=== PATIENT | female | born 1980 | race American Indian/Alaskan Native ===

== ENCOUNTER 2021-03-05 07:21 | Day surgery (SDC) | payer MEDICAID ==
--- NOTE | 2021-02-24 18:11 | History and Physical Report ---
History of Present Illness Date of examination: 02/24/21 Chief complaint: desiring permanent sterilization History of present illness: 40 yo A1 c/b hx heart palpitations (s/p cardiology clearance) hx HSV, hx umbilical hernia, hx L bartholin's gland cyst desiring permanent sterilization. Patient reports completed childbearing and no longer wishes to conceive. Patient also with with hx of L Bartholin's abscess s/p I&D 01/2021, wants marsupilization if cyst returns. 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: abnormal PAP smear (hx abnormal pap, most recently negative), herpes Family/Genetic History: cancer (breast ca) Social history: no significant social history - Obstetrical History : 4 Para: 3 Hx # Term Pregnancies: 3 Spontaneous Abortions: 1 Number of Living Children: 3 Medications and Allergies Allergies Allergy/AdvReac Type Severity Reaction Status Date / Time bupivacaine Allergy Itching Verified 03/03/21 18:45 latex Allergy Rash Verified 03/03/21 18:45 Home Medications Medication Instructions Recorded Confirmed Last Taken Type Ergocalciferol(Vitamin D2)(Nf) 400 unit PO DAILY 03/03/21 03/05/21 03/05/21 06:30 History [Vitamin D (Nf)] Levothyroxine [Synthroid] 50 mcg PO QAM 03/03/21 03/05/21 03/04/21 08:00 History Fexofenadine HCl [Annita Allergy] 60 mg PO QDAY 03/05/21 03/05/21 03/04/21 History Fluticasone [Flonase] 1 spray NS QDAY 03/05/21 03/05/21 03/04/21 History Review of Systems All systems: negative (expect HPI) - Physical Exam Cardiovascular: Regular rate Lungs: Positive: Clear to auscultation Abdomen: Positive: normal appearance, soft Genitourinary (Female): Positive: normal external genitalia Results Result Diagrams: 03/05/21 08:15 All other labs normal. Assessment and Plan - Patient Problems (1) Admission for sterilization Current Visit: No Status: Acute Plan to address problem: To OR for bilateral tubal ligation with Filshie Clips --Consented in the chart --Questions solicited and answered. Understands that is considered a sterilization procedure and wishes to proceed (2) Cyst of left Bartholin's gland Current Visit: No Status: Acute Plan to address problem: Consented for procedure but patient understands that marsuplization will only take place if cyst present on day of surgery
[2021-03-05] MEDS ORDERED: LACTATED RINGERS 1,000 ML IV SCH (08:30)
[2021-03-05 08:35] LABS: Basophils % (Auto) 0.5 % (0.0-1.8); Eosinophils # (Auto) 0.1 K/mm3 (0.0-0.4); Eosinophils % (Auto) 1.7 % (0.0-4.3); Hematocrit 38.1 % (30.3-42.9); Hemoglobin 13.3 gm/dl (10.1-14.3); Lymphocytes # (Auto) 1.8 K/mm3 (1.2-5.4); Lymphocytes % (Auto) 26.5 % (13.4-35.0); Mean Corpuscular HGB Conc 35 % (30-34); Mean Corpuscular Volume 92 fl (79-97); Monocytes # (Auto) 0.5 K/mm3 (0.0-0.8); Monocytes % (Auto) 6.9 % (0.0-7.3); Platelet Count 178 K/mm3 (140-440); Red Blood Count 4.15 M/mm3 (3.65-5.03)
[2021-03-05] MEDS ORDERED: HYDROmorphone 1 MG/1 ML INJ IV PRN (08:37)
[2021-03-05] MEDS ORDERED: ONDANSETRON 4 MG/2 ML INJ IV PRN (08:37)
--- NOTE | 2021-03-05 08:39 | Anesthesia Day of Surgery ---
Anesthesia Day of Surgery - Day of Surgery Patient Examined: Yes Patient H&P Reviewed: Yes Patient is NPO: Yes
--- NOTE | 2021-03-05 08:41 | Anesthesia Consultation ---
Anesthesia Consult and Med Hx Date of service: 03/05/21 - Airway Anesthetic Teeth Evaluation: Good ROM Head & Neck: Adequate Mental/Hyoid Distance: Adequate Mallampati Class: Class I Intubation Access Assessment: Good - Pre-Operative Health Status ASA Pre-Surgery Classification: ASA2 Proposed Anesthetic Plan: General - Pulmonary Hx Asthma: Yes (Exercise-induced) - Cardiovascular System Hx Hypertension: No (Had pre-eclampsia. +Cardiac clearance for palpitations) - Central Nervous System Hx Psychiatric Problems: No - Gastrointestinal Hx Gastroesophageal Reflux Disease: No - Endocrine Hx Thyroid Disease: Yes Hx Hypothyroidism: Yes - Hematic Hx Sickle Cell Disease: No - Other Systems Hx Alcohol Use: Yes (Occas) Hx Cancer: No Hx Obesity: No
[2021-03-05] MEDS ORDERED: fentaNYL 100 MCG/2 ML INJ ONE (08:56)
[2021-03-05] MEDS ORDERED: ROCURONIUM 50 MG/5 ML INJ IV ONE (08:56)
[2021-03-05] MEDS ORDERED: LIDOCAINE MPF (2%) 20 MG/1 ML VIAL 5 ML ONE (08:56)
[2021-03-05] MEDS ORDERED: propofoL 200 MG/20 ML VIAL IV ONE (08:57)
[2021-03-05] MEDS ORDERED: CELECOXIB 200 MG CAP PO NR (09:00)
[2021-03-05] MEDS ORDERED: ACETAMINOPHEN 500 MG TAB PO ONE (09:00)
[2021-03-05] MEDS ORDERED: MAGNESIUM OXIDE 400 MG TAB PO ONE (09:00)
[2021-03-05] MEDS ORDERED: BUPIVACAINE/PF (0.5%) 5 MG/1 ML 30 ML VIAL INFILTRATI ONE (09:12)
[2021-03-05] MEDS ORDERED: LIDOCAINE (1%) 10 MG/1 ML VIAL 20 ML MDV ONE (09:57)
[2021-03-05] MEDS ORDERED: GLYCOPYRROLATE 0.4 MG/2 ML INJ ONE (10:15)
[2021-03-05] MEDS ORDERED: LIDOCAINE (1%) 10 MG/1 ML VIAL 20 ML MDV INFILTRATI ONE (10:15)
[2021-03-05] MEDS ORDERED: NEOSTIGMINE 10MG/10 ML INJ MDV ONE (10:15)
[2021-03-05] MEDS ORDERED: ONDANSETRON 4 MG/2 ML INJ ONE (10:15)
--- NOTE | 2021-03-05 10:23 | Procedure Note ---
Date of procedure: 03/05/21 Pre-op diagnosis: desiring permanent sterilization Post-op diagnosis: same Procedure: Preoperative diagnosis: Multiparous woman desiring permanent sterilization Postoperative diagnosis: Same Operation performed: 1. Exam under anesthesia 2. Laparoscopic bilateral tubal ligation with Filshie clips Surgeon: Noy Moreno Anesthesia: General endotracheal anesthesia Estimated blood loss 10 cc IVF 500 UOP 50 Pathology Specimens: none Complications none Disposition and condition: To the PACU in stable condition and then discharged home Findings: 1. Small, mobile, anteverted uterus without adnexal masses on EUA 2. Normal uterus and bilateral tubes and ovaries on laparoscopy 3. Normal-appearing liver, gallbladder next 4. No bartholin's cyst noted on EUA Statement of medical necessity 40 yo G 4 P 3 A 1 who desires permanent sterilization. The patient was extensively counseled and offered reversal methods of contraception but declined. She was informed about the procedure failure rates and regret rates under the age of 30 years. The procedure risk, benefits, indications and alternatives were thoroughly reviewed with patient. Description of operation: After obtaining informed consent, the patient was taken to the operating room where satisfactory general endotracheal anesthesia was established. The patient was placed in modified supine position using Kane stirrups ensuring proper positioning and cushioning to avoid nerve injury. An exam under anesthesia was performed with the findings noted above. She was prepped and draped in the usual sterile fashion. Straight catheterization of the bladder was performed. A Vcare manipulator was placed in order to aid in uterine manipulation. Attention was directed to the abdomen. A 5 mm incision was placed supraumbilically. With the patient horizontal, the camera and 5 mm trocar were introduced into the abdominal cavity while tenting up the abdominal wall with towel clips in order to gain entry into the abdominal cavity. Intraperitoneal placement was confirmed with initial pressure of 20 mmHg on insufflation. Pneumoperitoneum was obtained in the placed and the patient was placed in Trendelenburg position. A midline suprapubic incision was made with a scalpel and a 8 mm trocar was placed under direct visualization. The blunt grasper was used in order to inspect the pelvis with the findings noted above. The fallopian tubes were identified and followed out to the fimbriated ends. The entire mid isthmic girth of the left tube was grasped perpendicularly without difficulty with applicator. The clip was applied and good applied with tubal blanching was noted. There was no bleeding in the mesosalpinx. The same procedure was performed on contralateral side. This procedure was completed x2 with a result of 2 Filshie clips on each tube. All instruments were removed. Suprapubic trocar was removed under direct verbalization with port site hemostasis noted. The pneumoperitoneum was reduced and the umbilical trocar was removed under direct visitation while with withdrawing the laparoscope. The patient was returned to horizontal dorsal supine position. The skin incisions were closed with 2-0 Vicryl in a subcuticular fashion and dressed with Dermabon d. Lidocaine was injected directly into the closed incisions. The Vcare manipulator was removed from vagina. The patient tolerated the procedure well was extubated without difficulty and transferred recovery room in good condition. Sponge, needle instrument counts were correct x2. There is no surgical or anesthetic complications. Anesthesia: ABDELRAHMAN Surgeon: NOY MORENO JR Estimated blood loss: minimal IV fluids: 500 Urine output: 50 Pathology: none Condition: stable Disposition: same day
[2021-03-05] MEDS ORDERED: oxyCODONE /ACETAMINOPHEN 5-325MG TAB PO PRN (10:24)
[2021-03-05] MEDS ORDERED: IBUPROFEN 600 MG TAB PO PRN (10:24)
[2021-03-05] MEDS: HYDROmorphone 1 MG/1 ML INJ IV PRN ×2 (10:47→10:57)
[2021-03-05 11:16] VITALS: BP 119/83
--- NOTE | 2021-03-05 16:10 | Post Anesthesia Evaluation ---
- Post Anesthesia Evaluation Patient Participated: Yes Airway Patent: Yes Stable Respiratory Function: Yes Nausea/Vomiting: No Temp > 96.8F: Yes Pain Manageable: Yes Adequeate Hydration: Yes Anesthesia Complications: No Block Receding Appropriately: Not Applicable Patient on Ventilator: No
== END 2021-03-05 11:50 | disposition home or self-care (01) ==
LOC: OR 07:21
PROVIDERS: ATTEND Obstetrics & Gynecology
DX: Z30.2 Encounter for sterilization (principal); J45.909 Unspecified asthma, uncomplicated; E03.9 Hypothyroidism, unspecified; Z88.8 Allergy status to other drugs, medicaments and biological substances; Z72.89 Other problems related to lifestyle; Z91.040 Latex allergy status; Z98.890 Other specified postprocedural states
CPT/HCPCS: 36415; 58671; 81025; 85025; 86850; 86900; 86901; J1170; J2405; J2704; J2710; J3010; J7120